=== PATIENT | female | born 2000 | race American Indian/Alaskan Native ===

== ENCOUNTER 2018-12-18 15:27 | Emergency (ER) | payer MEDICAID, OTHER ==
[2018-12-18 16:15] VITALS: BP 129/77
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
== END 2018-12-18 19:55 | disposition left against medical advice (07) ==
LOC: ED 15:27
DX: M54.5 Low back pain (principal); V89.2XXA Person injured in unspecified motor-vehicle accident, traffic, initial encounter; Y93.89 Activity, other specified; Y92.488 Other paved roadways as the place of occurrence of the external cause; Y99.8 Other external cause status
CPT/HCPCS: 72100